=== PATIENT | male | born 1935 | race Caucasian/White ===

== ENCOUNTER → 2020-10-02 | Day surgery (SDC) | payer OTHER ==
[~2020-10-02] VITALS: Ht 180.3 cm; Wt 94.8 kg
[~2020-10-02] MED LIST: ATORVASTATIN CA10 MG PO; CALCIUM CITRAT1 EA15 PO; CENTRUM SILVER1 EAC7 PO; ELIQUIS5 MG PO; FLONASE 0.05%50 MCG NARES; LISINOPRIL2.5 MG PO; OMEPRAZOLE 20 M20 M1 PO; PACERONE200 MG PO; SINGULAIR 10 MG10 M1 PO; TAMSULOSIN HCL0.4 MG PO
[2020-10-02 13:15] VITALS: BP 159/92
--- NOTE | 2020-10-03 18:06 | PATH ---
[place] [address] PATHOLOGY RPT PROCEDURE Name: MARCY TOBAR Room #: REG [facility]..#: [id number] Admission: 10/02/20 Date of : 33 Discharge: Report #: [id number] Path Case #: [id number] [facility] Accession Number: [id number] . 01 Material submitted: . eyelid - LESION RIGHT LOWER EYELID - FS. Modifiers: right, lower . 01 Clinician provided ICD-10: D23.112 . 02 Frozen section diagnosis: . FROZEN SECTION DIAGNOSIS: FSA1. Lesion right lower eyelid, excision: - Side margins, superior, and inferior skin margins free of invasive carcinoma. - Conjunctival/deep margin positive. . These findings are discussed with Dr. Zach Garcia and a written report is placed in the patient's chart. (IUV:pit 10/02/2020) . FROZEN SECTION GROSS DESCRIPTION" The specimen is received fresh from the OR labeled with the patient's name and "lesion right lower eyelid" consists of a U shaped specimen with the left limb indicating the lateral to superior margin. The specimen is oriented as superior, medial, inferior, lateral. It measures 1.6 cm from medial to lateral, 1.0 cm for the inferior limb of the specimen and 0.5 cm for the superior to lateral limb of the specimen. The specimen is inked as follows: The superior to medial soft tissue is inked yellow, the medial to inferior is inked black, the lateral to inferior is inked blue and the lateral to superior is inked orange. The deep margin is tagged with black ink and the specimen is serially sectioned and submitted for frozen section as follows: Section through the superior limb is made and submitted as "tip" along with serial sections of the main specimen. The specimen is submitted for frozen section as FSA1 in entirety and this is subsequently submitted for permanent sections as A1. (IUV:pit 10/02/2020) . Frozen section performed at , [address] [place], [place] [address] , [place] [address]. IZV/QTP . 02 Diagnosis: Skin, lesion right lower eyelid, excision: - BASAL CELL CARCINOMA. - TUMOR PRESENT AT DEEP/CONJUNCTIVAL MARGIN FOCALLY. - Side margins (medial and lateral, superior as well as inferior skin margins) free of malignancy. [address] [address] PATHOLOGY RPT PROCEDURE Name: MARCY TOBAR Room #: REG [facility].R.#: [id number] Admission: 10/02/20 Date of : 33 Discharge: Report #: [id number] Path Case #: [id number] (IUV:pit 10/03/2020) QTP 10/03/2020 1338 Local . 02 Electronically signed: . Odette Munoz MD, Pathologist NPI- [id number] . 01 Gross description: . SEE FROZEN SECTION FOR GROSS DESCRIPTION /QTP 10/03/2020 0702 Local . 02 Pathologist provided ICD-10: C44.1122 . 02 CPT . 334763, [id number] Specimen Comment: A courtesy copy of this report has been sent to [phone] Specimen Comment: Report sent to Performed at: [address], [place] [id number] MD Brian Phillip MD Phone: [phone] Performed at: [address] [id number] MD Odette Munoz MD Phone: [phone]
--- NOTE | 2020-10-06 06:37 | O ---
[facility] [place] [address] OPERATIVE REPORT Name: MARCY TOBAR Room #: REG [facility].#: [id number] Admission: 10/02/20 Attend Phys: Zach Garcia MD Discharge: Date of : 33 Report #: [id number] THIS REPORT FOR: cc: FAM - Family physician unknown FAM - Family physician unknown Zach Garcia MD ~ DATE OF SERVICE: 10/02/2020 PREOPERATIVE DIAGNOSIS: Tumor of right lower lid lateral canthus and upper lid. POSTOPERATIVE DIAGNOSIS: Tumor of right lower lid lateral canthus and upper lid, basal cell carcinoma. PROCEDURE: Excision of tumor of right lower lid lateral canthus and upper lid with myocutaneous advancement flap repair of right lower lid defect and canthoplasty repair of right lateral canthus and upper lid defect. SURGEON: Zach Garcia MD [employer] ADMINISTRATOR: None. ANESTHESIA: MAC. COMPLICATIONS: None. INDICATIONS FOR SURGERY: This pleasant 85-year-old gentleman has a nodular ulcerated mass in his lateral right lower lid that involves the lateral canthus and extends onto his upper lid. He presents today for excision of this tumor with frozen sections and subsequent reconstruction of those defects. Informed consent was obtained then to include but not limited to the potential risk for loss of vision, bleeding, infection, failure to improve the problem, the potential need for further surgery or treatment. DESCRIPTION OF PROCEDURE: The patient was taken to the operating room where 2% Xylocaine with epinephrine mixed with equal parts of 0.75% Marcaine with Wydase was administered transcutaneously and transconjunctivally to the right lower lid, the right lateral canthus, the right cheek, the right upper lid and the right infratemporal fossa. The patient was subsequently prepped and draped in the usual sterile fashion. A fine-tip skin marking pen was then utilized to outline the medial most portion of the lesion including 1-2 mm of normal appearing tissue. The entire lateral canthus had to be excised because it was involved by the tumor. An incision was then outlined superiorly directed towards the brow in the lateral upper lid. The incision was then directed laterally towards the infratemporal fossa, so that the entire lateral canthus was excised en bloc. The incisions were then made perpendicularly across the [address] [address] OPERATIVE REPORT Name: EKATERINAMARCY Nataly Room #: REG [facility] M.R.#: [id number] Admission: 10/02/20 Attend Phys: Zach Garcia MD Discharge: Date of : 34 Report #: [id number] eyelid margin and drawn to the lateral aspect of the arcus marginalis. The dissection was then carried out in the deeper tissues as the lesion was removed from the temporal fossa. Relatively brisk bleeding ensued and hemostasis was achieved with diligent pinpoint monopolar cautery. The lacrimal gland was exposed during the dissection. The specimen was then oriented on a drawing for the waiting pathologist. She snap froze that tissue and found that it was indeed a basal cell carcinoma and the margins in the upper lid and the lower lid were clear as was the skin margin laterally. Attention was then turned to repair of the defect. A myocutaneous flap was then developed medially in the lower lid to be rotated laterally to correct the lower lid defect. The flap was advanced and secured with multiple interrupted 5-0 Vicryl sutures that were suspended from periosteum. A canthoplasty myocutaneous advancement flap was then accomplished in the upper eyelid as the upper lid tissues were re-suspended from the periosteum just superior to where the flap from the lower lid came. Interrupted 5-0 Vicryl sutures were used after hemostasis was achieved from the flap being mobilized. The canthoplasty was completed as interrupted 6-0 plain gut sutures were placed. The skin from the lower lid and cheek advancement flap was then closed with interrupted 6-0 plain gut sutures. The wounds were then cleaned and dressed with erythromycin ophthalmic ointment. The patient subsequently transported to the recovery area having tolerated the procedures well with no anesthetic or operative complications being noted. <ELECTRONICALLY SIGNED> By: Zach Garcia MD 10/06/20 0637 1345 1422 Zach Garcia MD /nt
== END | disposition home or self-care (01) ==
LOC: OR 11:39
PROVIDERS: ATTEND Ophthalmology
DX: C44.1122 Basal cell carcinoma of skin of right lower eyelid, including canthus (principal); I10 Essential (primary) hypertension; I48.91 Unspecified atrial fibrillation; I42.9 Cardiomyopathy, unspecified; E78.00 Pure hypercholesterolemia, unspecified; K21.9 Gastro-esophageal reflux disease without esophagitis; Z98.890 Other specified postprocedural states; Z79.899 Other long term (current) drug therapy; Z87.891 Personal history of nicotine dependence; Z79.01 Long term (current) use of anticoagulants; Z95.2 Presence of prosthetic heart valve; Z98.41 Cataract extraction status, right eye; Z98.42 Cataract extraction status, left eye
CPT/HCPCS: 50010; 50101; 50386; 50398; 51636; 56528; 56531; 62110; 62850; 70005

== ENCOUNTER 2020-12-04 11:23 | Day surgery (SDC) | payer OTHER ==
[~2020-12-04] VITALS: Ht 180.3 cm; Wt 92.5 kg
[2020-12-04 11:59] VITALS: BP 100/79
--- NOTE | 2020-12-08 06:18 | O ---
[facility] Tania Kowalski [facility] [place] [address] OPERATIVE REPORT Name: MARCY TOBAR Room #: DEP [facility]..#: [id number] Admission: 12/04/20 Attend Phys: Zach Garcia MD Discharge: 12/04/20 Date of : 33 Report #: [id number] THIS REPORT FOR: cc: Bhavin Bell MD,Bhavin Garcia,Zach Macias MD ~ DATE OF SERVICE: 12/04/2020 PREOPERATIVE DIAGNOSIS: Tumor of left lower lid lateral canthus and cheek. POSTOPERATIVE DIAGNOSIS: Tumor of left lower lid lateral canthus and cheek, basal cell carcinoma. PROCEDURE PERFORMED: Excision of lesion of left lower lid lateral canthus and cheek with frozen sections and myocutaneous flap repair of defect. SURGEON: Zach Garcia MD. HOME HEALTH OUTREACH COORDINATOR: None. ANESTHESIA: MAC. COMPLICATIONS: None. INDICATIONS FOR SURGERY: This pleasant 85-year-old gentleman has a nodular ulcerative irregular mass in his lateral left lower lid extending into the infratemporal fossa and down onto his cheek. The lesion appears to most likely be a basal cell carcinoma. He presents today for excision of this lesion with frozen sections and subsequent reconstruction of that defect. Informed consent was obtained to include but not limited to the potential risk for loss of vision, bleeding, infection, failure to improve the problem, the potential need for further surgery or treatment. DESCRIPTION OF PROCEDURE: The patient was taken to the operating room where 2% Xylocaine with epinephrine mixed with equal parts 0.75% Marcaine with Wydase was administered transcutaneously and transconjunctivally to the left lower lid, the left lateral canthus, the infratemporal fossa and the left cheek. The patient was subsequently prepped and draped in the usual sterile fashion. A fine tip skin marking pen was then utilized to outline the lesion with a 2 mm margin of normal appearing tissue. The incisions were then made with a 15 blade and the deeper dissection accomplished with a Radha scissor. The lesion included a portion of the superficial temporal artery. The pathologist took that specimen as hemostasis was achieved in the field. She snap froze the tissue and found that the lesion was indeed a basal cell carcinoma, and she felt that margins were clear. There was some actinic change on the surface of one border of the [address] [address] OPERATIVE REPORT Name: MARCY TOBAR [facility]#: [id number] Admission: 12/04/20 Attend Phys: Zach Garcia MD Discharge: 12/04/20 Date of : 33 Report #: [id number] lesion, but it was not invasive cancer. A myocutaneous flap was then developed laterally to be rotated and to correct that defect. Hemostasis was then re-achieved. Multiple interrupted 6-0 Vicryl sutures were then placed deep in the subcutaneous tissues to reapproximate the wound. The superficial closure was accomplished with multiple interrupted 6-0 plain gut sutures. The wound was then cleaned and dressed with erythromycin ophthalmic ointment. The patient subsequently transported to the recovery area, having tolerated the procedure well with no anesthetic or operative complications being noted. <ELECTRONICALLY SIGNED> By: Zach Garcia MD 12/08/20 0618 1351 1413 Zach Garcia MD /nt
--- NOTE | 2020-12-10 18:06 | PATH ---
[facility] Tania Kowalski [place] [address] PATHOLOGY RPT PROCEDURE Name: MARCY FORRESTER Nataly Room #: DEP [facility].#: [id number] Admission: 12/04/20 Date of : 33 Discharge: 12/04/20 Report #: [id number] Path Case #: [id number] [facility] Accession Number: [id number] . 01 Material submitted: . eye - TUMOR LEFT LOWER LID LATERAL CANTHUS FROZEN SECTION. Modifiers: left, lower, lateral . 01 Clinician provided ICD-10: D23.122 . 01 Clinical history: . EXCISION TUMOR . 02 Frozen section diagnosis: . FROZEN SECTION DIAGNOSIS (Dr. Michelle Delaney) . Skin "left lower lateral canthus, biopsy: - Basal cell carcinoma, margins negative for basal cell carcinoma. - Medial margin with actinic change. . The findings are conveyed to Dr. Garcia intraeoperatively and a progress note is placed in the patient's chart. . . FROZEN SECTION GROSS DESCRIPTION Received fresh from the operating room labeled Marcy Forrester, tumor left lower lid lateral canthus, is an elliptical piece of light carcamo somewhat atrophic skin measuring 3 x 1.5 cm, which has been excised to a depth of 0.[address] Garcia has oriented the specimen intraoperatively. The inferior tip will be designated as 12:00, medial as 3:00, superior as 6:00, and lateral as 9:00. The 12-3-6 o'clock margin is in black ink, the 6-9 o'clock margin is inked in yellow ink, and the 9-12 o'clock margin is inked in blue ink. There is a variegated brown, whitish-rudolph lesion in the central aspect of the skin ellipse. The specimen is serial sectioned and the 4 middle pieces are frozen and submitted as cassette A1. The 12:00 and 6:00 tips are submitted as cassette A2. (LATOSHAK:nicolette; 12/04/2020) . Frozen section performed at [facility], [address] [place], [place] [address] , [place] [address]. NAYAN/QTP . 02 Diagnosis: Skin "left lower lid lateral canthus", excisional biopsy: - BASAL CELL CARCINOMA, NODULAR AND SUPERFICIAL SPREADING TYPES; WITH A FOCUS OF SUPERFICIAL SPREADING TYPE INVOLVING THE SUPERIOR [address] [address] PATHOLOGY RPT PROCEDURE Name: MARCY FORRESTER Room #: DEP [facility]..#: [id number] Admission: 12/04/20 Date of : 33 Discharge: 12/04/20 Report #: [id number] Path Case #: [id number] MEDIAL MARGIN. - Background actinic keratosis. - Please see comment. [facility] 12/10/2020 1729 Local . 02 Comment: Evaluation of the permanent section material, examined at numerous levels, reveals a central nodular basal cell carcinoma, with several foci of adjacent superficial spreading type basal cell carcinoma. In the deeper levels examined, there is a focus of superficial spreading basal cell carcinoma identified at the superior medial margin. Review of the frozen section material of this area demonstrates a negative margin. . The above results are conveyed to Dr. Gino Garcia on 12/10/20 at approxi- mately 10:30 in the morning. (MLK/db; 12/10/2020) . 02 Electronically signed: . Michelle Delaney MD, Pathologist NPI- [id number] . 01 Gross description: . SEE FROZEN SECTION FOR GROSS DESCRIPTION /QTP 12/05/2020 0706 Local . 02 Microscopic: . . . 02 Pathologist provided ICD-10: C44.1192 . 02 CPT . 163849, [id number] Specimen Comment: A courtesy copy of this report has been sent to [phone] Specimen Comment: Report sent to , / Performed at: [address], [place], [place] [id number] MD Brian Phillip MD Phone: [phone] Performed at: [address] [id number] MD Odette Munoz MD Phone: [phone]
== END 2020-12-04 14:30 | disposition home or self-care (01) ==
LOC: OR 11:23 → TBA 12:17 → OR 14:30
PROVIDERS: ATTEND Ophthalmology
DX: C44.1192 Basal cell carcinoma of skin of left lower eyelid, including canthus (principal); L57.0 Actinic keratosis; I10 Essential (primary) hypertension; E78.00 Pure hypercholesterolemia, unspecified; I42.9 Cardiomyopathy, unspecified; I48.91 Unspecified atrial fibrillation; Z98.890 Other specified postprocedural states; Z79.899 Other long term (current) drug therapy; Z95.2 Presence of prosthetic heart valve; Z98.41 Cataract extraction status, right eye; Z98.42 Cataract extraction status, left eye; Z79.01 Long term (current) use of anticoagulants
CPT/HCPCS: 50010; 50101; 50386; 50398; 51636; 56531; 62110; 62850; 70005